=== PATIENT | male | born 1965 | race Caucasian/White ===

== ENCOUNTER 2018-07-09 16:04 | Emergency (ER) | payer BC, OTHER ==
--- NOTE | 2018-07-09 18:27 | UC ---
Respiratory Complaint HPI - HPI Summary HPI Summary: Patient is a 52 year old gentleman , who present today to the urgent care with sore throat . Started about 3 days ago and got worse today morning. No fever or chills at home. Pain upon swallowing. Has some sick contact at home. Reports some cough that is dry. He does have high blood pressure today denies any headache, visual disturbance, chest pain or shortness of breath. He reports that he has had high blood pressure and has discussed with his primary care doctor and is found high only when he is in the clinic. He does not take any medications. - History of Current Complaint Stated Complaint: SORE THROAT Time Seen by Provider: 07/09/18 18:25 Hx Obtained From: Patient - Allergies/Home Medications Allergies/Adverse Reactions: Allergies Allergy/AdvReac Type Severity Reaction Status Date / Time No Known Allergies Allergy Verified 07/09/18 18:29 Home Medications: Home Medications NK [No Home Medications Reported] 07/09/18 [History Confirmed 07/09/18] PMH/Surg Hx/FS Hx/Imm Hx - Additional Past Medical History Additional PMH: Hypertension, not on any medications Previously Healthy: Yes - Surgical History Surgical History: Yes Surgery Procedure, Year, and Place: testicle - Social History Alcohol Use: Daily Alcohol Amount: couple of beers Substance Use Type: None Smoking Status (MU): Never Smoked Tobacco Review of Systems All Other Systems Reviewed And Are Negative: Yes Constitutional: Positive: Negative Skin: Positive: Negative Eyes: Positive: Negative ENT: Positive: Sore Throat Respiratory: Positive: Cough - Mild, dry Cardiovascular: Positive: Negative Gastrointestinal: Positive: Negative Genitourinary: Positive: Negative Motor: Positive: Negative Neurovascular: Positive: Negative Musculoskeletal: Positive: Negative Neurological: Positive: Negative Psychological: Positive: Negative Is Patient Immunocompromised?: No Physical Exam - Summary Physical Exam Summary: Physical Exam: Const: Appears well. No signs of apparent distress present. Alert and oriented x 3. Musculo: Walks with a normal gait. Head/Face: Atraumatic, normocephalic on inspection. Eyes: EOMI and PERRLA in both eyes. Conjunctivae clear. No discharge noted ENT: Hearing normal, TM normal appearing bilaterally Mild pharyngeal erythema without any exudates . There is left tonsillar stone noted. Uvula is midline. Left anterior cervical tender lymphadenopathy noted. Respiratory: Respirations are unlabored. Lungs clear to auscultation bilaterally, no wheezing , rhonchi or rales noted . CVS: Regular rate and Rhythm, S1S2 normal , no murmurs identified. Extremities: Peripheral circulation is grossly normal. Pulses 2+ Abdomen : Soft non tender , nondistended , Bowel sounds present . No guarding , rebound tenderness or rigidity noted. Skin: No lesions or rash located on the upper extremities or on the lower extremities. Neuro: Cranial nerves II to XII intact, motor and sensory intact. DTR Intact bilaterally. Mood is normal. Affect is normal. Triage Information Reviewed: Yes Vital Signs Reviewed: Yes Respiratory Course/Dx - Course Course Of Treatment: During the visit today, we obtained a rapid strep test that was negative . His initial blood pressure was high at 203/114 and he denied any symptoms of visual disturbance, chest pain or shortness. He has high blood pressure during the clinic visits and he has discussed with the primary care doctor and has not been taking any medications for this. Repeat blood pressure was improved. We discussed the findings and his symptoms appear to be related to a viral illness and supportive therapy recommended. Patient expressed understanding . - Differential Dx/Diagnosis Provider Diagnosis: Viral syndrome, Hypertension Discharge - Sign-Out/Discharge Documenting (check all that apply): Patient Departure All imaging exams completed and their final reports reviewed: No Studies - Discharge Plan Condition: Stable Disposition: HOME Patient Education Materials: Viral Syndrome (ED) Referrals: Loki Durán DO [Primary Care Provider] - 2 Days Additional Instructions: Salt water gargles and throat lozenges Keep yourself hydrated Follow up with your primary care doctor in 2 days. Patients blood pressure slightly high in Urgent care today , plan follow up with PCP for better control Return to Urgent care / ER if symptoms get worse. - Billing Disposition and Condition Condition: STABLE Disposition: Home
[2018-07-09 18:51] VITALS: BP 198/118
== END 2018-07-09 19:35 | disposition home or self-care (01) ==
LOC: UCCORT 16:04
DX: B34.9 Viral infection, unspecified (principal); I10 Essential (primary) hypertension
CPT/HCPCS: 87651; 99201; G0463